=== PATIENT | female | born 1965 | race Two or more races ===

== ENCOUNTER 2016-08-28 11:24 | Emergency (ER) | payer OTHER ==
[~2016-08-28] VITALS: Ht 165.1 cm; Wt 51.0 kg
[~2016-08-28 11:24] MED LIST: [UNRECOGNIZED DRUG - OTHER] PO
[2016-08-28] MEDS ORDERED: LORazepam 1MG TABLET ONE (12:51)
[2016-08-28] MEDS ORDERED: LORazepam 1MG TABLET PO ONE (13:00)
[2016-08-28 13:10] LABS: BLOOD UREA NITROGEN 14 mg/dL (7-18)
[2016-08-28 13:40] VITALS: BP 121/65
== END 2016-08-28 13:42 | disposition home or self-care (01) ==
LOC: ED 13:36
DX: F41.1 Generalized anxiety disorder (principal)
CPT/HCPCS: 36415; 80048; 82040; 85025; 93005

== ENCOUNTER → 2016-12-10 | Outpatient (CLI) | payer OTHER | END | disposition home or self-care (01) | LOC: RAD 17:21 | PROVIDERS: ATTEND Registered Nurse | DX: G93.9 Disorder of brain, unspecified (principal); D49.6 Neoplasm of unspecified behavior of brain | CPT/HCPCS: 70553 ==